=== PATIENT | male | born 1975 | race Caucasian/White ===

== ENCOUNTER 2017-01-27 17:11 | Emergency (ER) | payer BC ==
[2017-01-27 17:26] VITALS: BP 157/82
[2017-01-27] MEDS ORDERED: Sodium Chloride 0.9% 1,000 ML IV STA (17:31)
[2017-01-27] MEDS ORDERED: Sodium Chloride 0.9% 10 ML Syringe FLUSH PRN (17:31)
[2017-01-27] MEDS ORDERED: Acetaminophen 325 MG Tab PO ONE (17:32)
--- NOTE | 2017-01-27 18:14 | CT ---
CT abdomen and pelvis Technique: Multiple axial sections were obtained from above the dome of the diaphragm inferiorly through the pubic symphysis. Intravenous and oral contrast was not utilized. Study has been performed as a ureteral stone protocol. Comparison: Previous contrast CT exam of 11/14/16. Findings: Kidneys show no abnormal calcifications. No hydronephrosis is seen. No abnormal calcifications are seen within the ureters. Visualized lung bases shows nothing acute. Liver and spleen have an unremarkable noncontrast CT appearance. Gallbladder shows no calcified gallstones. Adrenal glands show no nodule. Pancreas is within normal limits. Aorta shows no aneurysmal dilatation. Appendix is seen which appears normal. Diverticuli are seen within the sigmoid and descending colon with no inflammatory change to indicate diverticulitis. No pelvic mass or adenopathy is appreciated. No bowel dilatation is seen. No free fluid is seen. Small fat-containing umbilical hernia is incidentally noted. 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 Other degenerative change is scattered within the spine which appears stable from previous exam. Impression: 1. Incidental findings. 2. No renal calculi, ureteral dilatation or ureteral stone is seen. 3. Nothing acute is appreciated. Diagnostic code #2
--- NOTE | 2017-01-27 18:33 | EDM.PDOC ---
ED HPI GENERAL MEDICAL PROBLEM - General Chief Complaint: General Stated Complaint: PAIN & BLOOD WITH URINATION Time Seen by Provider: 01/27/17 17:19 Source of Information: Reports: Patient History Limitations: Reports: No limitations - History of Present Illness INITIAL COMMENTS - FREE TEXT/NARRATIVE: The patient presents with hematuria and left leg pain and edema. This weekend the patient was in and out of his vehicle and on his knees installing some speakers. His knee hurt this weekend and he took about 6 aleve at 1 time and 2 more a few hours later. After that he had hematuria. He has some low back pain. He has fever and chills. His temp was 101 when he arrived. He had some nausea and vomiting earlier today. He was seen at the [facility] and they did some labs and a UA and referred him to urology next week. He has no cough, chest pain, shortness of breath or abdominal pain. He has no history of DVT or PE. He did have a hematoma to his left leg last year from a softball to his leg. Onset: gradual Duration: Day(s): Location: Reports: lower extremity, left Quality: Reports: Ache Severity: moderate Improves with: Reports: None Worsens with: Reports: None Context: Reports: Activity (He was up and down and kneeling this ) Associated Symptoms: Reports: fever/chills, nausea/vomiting. Denies: chest pain , cough, shortness of breath left ankle Pain Score (Numeric/FACES): 9 left knee Pain Score (Numeric/FACES): 5 - Related Data Allergies Allergy/AdvReac Type Severity Reaction Status Date / Time Penicillins Allergy Swelling Verified 01/27/17 17:26 procaine [From Novocain] Allergy Facial Verified 01/27/17 17:26 Swelling Home Meds: Home Meds Doxycycline [Vibramycin] 100 mg PO Q12HR #20 cap 01/27/17 [Rx] Lisinopril [Prinivil] 5 mg PO DAILY 01/27/17 [History] Metoprolol Succinate 25 mg PO DAILY 01/27/17 [History] Sertraline [Zoloft] 50 mg PO DAILY 01/27/17 [History] atorvaSTATin [Lipitor] 20 mg PO BEDTIME 01/27/17 [History] Past Medical History HEENT History: Reports: Impaired vision Cardiovascular History: Reports: High cholesterol, Hypertension Psychiatric History: Reports: Depression - Past Surgical History Musculoskeletal Surgical History: Reports: Other (see below) Other Musculoskeletal Surgeries/Procedures:: back surgery, broken arm Social & Family History - Family History Family Medical History: Noncontributory - Tobacco Use Smoking Status *Q: Unknown Ever Smoked - Caffeine Use Caffeine Use: Reports: Other ED ROS GENERAL - Review of Systems Review Of Systems: See Below Constitutional: Reports: fever, chills HEENT: Reports: No symptoms Respiratory: Reports: No Symptoms Cardiovascular: Reports: No symptoms Endocrine: Reports: no symptoms GI/Abdominal: Reports: Nausea, Vomiting. Denies: Abdominal pain : Reports: dysuria, flank pain Musculoskeletal: Reports: other (Left leg pain and edema) Skin: Reports: other (Redness to the left leg) Neurological: Reports: No Symptoms ED EXAM, GENERAL - Physical Exam Exam: See Below Exam Limited By: No limitations General Appearance: alert, no apparent distress Ears: normal external exam Nose: normal inspection Head: atraumatic, normocephalic Neck: normal inspection Respiratory/Chest: no respiratory distress, lungs clear, normal breath sounds Cardiovascular: regular rate, rhythm, no edema, no murmur GI/Abdominal: soft, non tender, no organomegaly Back Exam: normal inspection Extremities: other (Mild to moderate edema to the left leg with erythema to the medial knee extending to the lower leg. Good pulses and sensation distally. Superficial laceration to the patella.) Course - Vital Signs Last Recorded V/S: Last Vital Signs Temp 101.1 F H 01/27/17 17:21 Pulse 94 01/27/17 17:21 Resp 18 01/27/17 17:21 BP 157/82 H 01/27/17 17:21 Pulse Ox 98 01/27/17 17:21 - Orders/Labs/Meds Orders: Active Orders 24 hr Category Date Time Status Peripheral IV Care [RC] . DIRECTED Care 01/27/17 17:31 Active CULTURE BLOOD [BC] Stat Lab 01/27/17 18:00 Received CULTURE BLOOD [BC] Stat Lab 01/27/17 18:10 Received UA W/MICROSCOPIC [URIN] Stat Lab 01/27/17 19:00 Results Sodium Chloride 0.9% [Saline Flush] Med 01/27/17 17:31 Active 10 ml FLUSH ASDIRECTED PRN Blood Culture x2 Reflex Set [OM.PC] Stat Oth 01/27/17 17:31 Ordered Peripheral IV Insertion Adult [OM.PC] Stat Oth 01/27/17 17:31 Ordered Medication Orders Sodium Chloride (Saline Flush) 10 ml FLUSH ASDIRECTED PRN PRN Reason: Keep Vein Open Last Admin: 01/27/17 17:58 Dose: 10 ml Labs: Laboratory Tests 01/27/17 01/27/17 01/27/17 Range/Units 18:10 18:10 18:10 WBC 10.90 H (4.23-9.07) K/mm3 RBC 4.33 L (4.63-6.08) M/mm3 Hgb 13.0 L (13.7-17.5) gm/L Hct 39.1 L (40.1-51.0) % MCV 90.3 (79.0-92.2) fl MCH 30.0 (25.7-32.2) pg MCHC 33.2 (32.2-35.5) g/dl RDW Std Deviation 42.9 (35.1-43.9) fL Plt Count 250 (163-337) K/mm3 MPV 9.8 (9.4-12.3) fl Neut % (Auto) 85.1 H (34.0-67.9) % Lymph % (Auto) 7.3 L (21.8-53.1) % [place] % (Auto) 7.2 (5.3-12.2) % Eos % (Auto) 0 L (0.8-7.0) Baso % (Auto) 0.2 (0.1-1.2) % Neut # (Auto) 9.28 H (1.78-5.38) K/mm3 Lymph # (Auto) 0.80 L (1.32-3.57) K/mm3 [place] # (Auto) 0.78 (0.30-0.82) K/mm3 Eos # (Auto) 0.00 L (0.04-0.54) K/mm3 Baso # (Auto) 0.02 (0.01-0.08) K/mm3 Manual Slide Review Abnormal smear Sodium 141 (136-145) mEq/L Potassium 3.8 (3.5-5.1) mEq/L Chloride 102 (98-107) mEq/L Carbon Dioxide 28 (21-32) mEq/L Anion Gap 14.8 (5-15) BUN 14 (7-18) mg/dL Creatinine 1.2 (0.7-1.3) mg/dL Est Cr Clr Drug Dosing 89.81 mL/min Estimated GFR (MDRD) > 60 (>60) mL/min BUN/Creatinine Ratio 11.7 L (14-18) Glucose 108 H (74-106) mg/dL Calcium 9.0 (8.5-10.1) mg/dL Total Bilirubin 0.7 (0.2-1.0) mg/dL AST 29 (15-37) U/L ALT 34 (16-63) U/L Alkaline Phosphatase 79 (46-116) U/L Creatine Kinase 329 H (39-308) U/L Total Protein 7.4 (6.4-8.2) g/dl Albumin 3.4 (3.4-5.0) g/dl Globulin 4.0 gm/dL Albumin/Globulin Ratio 0.9 L (1-2) Urine Color (Yellow) Urine Appearance (Clear) Urine pH (5.0-8.0) Ur Specific [place] (1.005-1.030) Urine Protein (Negative) Urine Glucose (UA) (Negative) Urine Ketones (Negative) Urine Occult Blood (Negative) Urine Nitrite (Negative) Urine Bilirubin (Negative) Urine Urobilinogen (0.2-1.0) Ur Leukocyte Esterase (Negative) 01/27/17 Range/Units 19:00 WBC (4.23-9.07) K/mm3 RBC (4.63-6.08) M/mm3 Hgb (13.7-17.5) gm/L Hct (40.1-51.0) % MCV (79.0-92.2) fl MCH (25.7-32.2) pg MCHC (32.2-35.5) g/dl RDW Std Deviation (35.1-43.9) fL Plt Count (163-337) K/mm3 MPV (9.4-12.3) fl Neut % (Auto) (34.0-67.9) % Lymph % (Auto) (21.8-53.1) % [place] % (Auto) (5.3-12.2) % Eos % (Auto) (0.8-7.0) Baso % (Auto) (0.1-1.2) % Neut # (Auto) (1.78-5.38) K/mm3 Lymph # (Auto) (1.32-3.57) K/mm3 [place] # (Auto) (0.30-0.82) K/mm3 Eos # (Auto) (0.04-0.54) K/mm3 Baso # (Auto) (0.01-0.08) K/mm3 Manual Slide Review Sodium (136-145) mEq/L Potassium (3.5-5.1) mEq/L Chloride (98-107) mEq/L Carbon Dioxide (21-32) mEq/L Anion Gap (5-15) BUN (7-18) mg/dL Creatinine (0.7-1.3) mg/dL Est Cr Clr Drug Dosing mL/min Estimated GFR (MDRD) (>60) mL/min BUN/Creatinine Ratio (14-18) Glucose (74-106) mg/dL Calcium (8.5-10.1) mg/dL Total Bilirubin (0.2-1.0) mg/dL AST (15-37) U/L ALT (16-63) U/L Alkaline Phosphatase (46-116) U/L Creatine Kinase (39-308) U/L Total Protein (6.4-8.2) g/dl Albumin (3.4-5.0) g/dl Globulin gm/dL Albumin/Globulin Ratio (1-2) Urine Color [place] H (Yellow) Urine Appearance Cloudy H (Clear) Urine pH 5.5 (5.0-8.0) Ur Specific [place] > or = 1.030 (1.005-1.030) Urine Protein 3+ H (Negative) Urine Glucose (UA) Negative (Negative) Urine Ketones Negative (Negative) Urine Occult Blood 3+ H (Negative) Urine Nitrite Negative (Negative) Urine Bilirubin 1+ H (Negative) Urine Urobilinogen 0.2 (0.2-1.0) Ur Leukocyte Esterase Negative (Negative) Meds: Medications Generic Name Dose Route Start Last Admin Trade Name Freq PRN Reason Stop Dose Admin Sodium Chloride 10 ml 01/27/17 17:31 01/27/17 17:58 Saline Flush FLUSH 10 ml ASDIRECTED PRN Administration Keep Vein Open Discontinued Medications Generic Name Dose Route Start Last Admin Trade Name [place] PRN Reason Stop Dose Admin Acetaminophen 975 mg 01/27/17 17:32 01/27/17 17:56 Tylenol PO 01/27/17 17:33 975 mg NOW ONE Administration Sodium Chloride 1,000 mls @ 1,000 mls/hr 01/27/17 17:31 01/27/17 17:58 Normal Saline IV 01/27/17 18:30 1,000 mls/hr .BOLUS STA Administration - Re-Assessments/Exams Free Text/Narrative Re-Assessment/Exam: 01/27/17 18:36 I ordered an IV NS bolus, tylenol 975mg for his fever, CT of his abdomen and pelvis without contrast and US of his left leg. I have also obtained blood cultures. The CT of his abdomen and pelvis shows no renal, ureteral dilatation or ureteral stone is seen. 01/27/17 19:22 The US of his leg does not show a DVT but he does have edema. His CK is slightly elevated at 329. His UA shows no UTI but he does have some protein and blood. I will give him a dose of rocephin here and a prescription for doxycycline for home. Departure - Departure Time of Disposition: 19:30 Disposition: Home, Self-Care 01 Condition: good Clinical Impression: Cellulitis of left leg, Hematuria Prescriptions: Doxycycline [Vibramycin] 100 mg PO Q12HR #20 cap Referrals: Aubrie Martins, [facility] [Primary Care Provider] - 1 Week Forms: ED Department Discharge Additional Instructions: Elevated your leg as much as you can for 2 days. Put warm compresses on your leg a couple times a day for 3 to 5 days. Take the doxycycline 2 times per day for 10 days. Take tylenol or motrin for any fever or pain. Please return if you are worse such as worsening fever or if the redness is swelling. Follow up with the urologist as scheduled and Lula Martins in 1 week. - My Orders Last 24 Hours: My Active Orders 01/27/17 17:31 Peripheral IV Care [RC] . DIRECTED Sodium Chloride 0.9% [Saline Flush] 10 ml FLUSH ASDIRECTED PRN Blood Culture x2 Reflex Set [OM.PC] Stat Peripheral IV Insertion Adult [OM.PC] Stat 01/27/17 18:00 CULTURE BLOOD [BC] Stat 01/27/17 18:10 CULTURE BLOOD [BC] Stat 01/27/17 19:00 UA W/MICROSCOPIC [URIN] Stat - Assessment/Plan Last 24 Hours: My Active Orders 01/27/17 17:31 Peripheral IV Care [RC] . DIRECTED Sodium Chloride 0.9% [Saline Flush] 10 ml FLUSH ASDIRECTED PRN Blood Culture x2 Reflex Set [OM.PC] Stat Peripheral IV Insertion Adult [OM.PC] Stat 01/27/17 18:00 CULTURE BLOOD [BC] Stat 01/27/17 18:10 CULTURE BLOOD [BC] Stat 01/27/17 19:00 UA W/MICROSCOPIC [URIN] Stat
--- NOTE | 2017-01-27 19:17 | US ---
Left lower extremity deep venous ultrasound: Duplex and color flow imaging was obtained of the left common femoral, superficial femoral, popliteal, proximal greater saphenous, posterior tibial and peroneal veins. Right common femoral vein was also evaluated. Findings: Normal phasic flow, augmentation and compression is seen. Subcutaneous edema is identified in area described by the technologist as "redness". Several incidental inguinal lymph nodes are seen. Impression: 1. Subcutaneous edema in area described as redness. 2. No findings of deep venous thrombosis is seen within either the left lower extremity or within the right common femoral vein. Diagnostic code #2
[2017-01-27] MEDS ORDERED: cefTRIAXone 1 GM in Sodium Chloride 0.9% 100 ML IV ONE (19:25)
[2017-01-27] MEDS ORDERED: cefTRIAXone 2 GM in Sodium Chloride 0.9% 100 ML IV ONE (19:27)
== END 2017-01-27 20:14 | disposition home or self-care (01) ==
LOC: JD.ED 17:11
DX: L03.116 Cellulitis of left lower limb (principal); R31.9 Hematuria, unspecified; I10 Essential (primary) hypertension; F32.9 Major depressive disorder, single episode, unspecified; Z98.890 Other specified postprocedural states; Z79.899 Other long term (current) drug therapy; Z88.0 Allergy status to penicillin; Z88.8 Allergy status to other drugs, medicaments and biological substances
CPT/HCPCS: 36415; 74176; 80053; 81001; 82550; 85025; 87040; 93971; 96361; 96365; 99284; A9270; J0696; J7030; J7040; J7050; 99283

== ENCOUNTER → 2024-09-05 | Day surgery (SDC) | payer BC ==
[~2024-09-05] MED LIST: Propofol 200 MG/20 ML SDV ONE; Sodium Chloride 0.9% 10 ML Syringe FLUSH PRN; Sodium Chloride 0.9% 10 ML Syringe FLUSH SCH
[2024-09-05] MEDS: Lactated Ringers 1,000 ML IV SCH (08:45)
[2024-09-05 11:59] VITALS: BP 129/88; PULSE 78
== END ==
LOC: JD.SDS 08:14
PROVIDERS: ATTEND Surgery
DX: D12.8 Benign neoplasm of rectum (principal); K63.5 Polyp of colon; D12.3 Benign neoplasm of transverse colon; I10 Essential (primary) hypertension; E66.01 Morbid (severe) obesity due to excess calories; E78.2 Mixed hyperlipidemia; F33.1 Major depressive disorder, recurrent, moderate; Z79.899 Other long term (current) drug therapy
CPT/HCPCS: 45380; 45381; 45385; J2704; J7120; 00811